=== PATIENT | female | born 1975 | race Caucasian/White ===

== ENCOUNTER → 2017-06-25 | Outpatient (CLI) | payer OTHER | LOC: HRSP 07:01 | PROVIDERS: ATTEND Family Medicine | DX: J45.909 Unspecified asthma, uncomplicated (principal) | CPT/HCPCS: 94060; 94726; 94729 ==

== ENCOUNTER 2017-07-16 10:45 | Emergency (ER) | payer OTHER ==
[~2017-07-16] VITALS: Ht 160 cm; Wt 50.0 kg
[2017-07-16 10:47] VITALS: BP 108/56; PULSE 80; RESP 16; TEMP 98.2; O2SAT 100
--- NOTE | 2017-07-16 16:44 | PD ---
Physical Exam Date Seen by Provider: Jul 16, 2017 Time Seen by Provider: 11:18 Narrative 42 year old female presents to the emergency department for psychiatric evaluation. Her PCP, Dr. Sheth, recommended she come in. She reports being depressed, but denies any suicidal ideation. She states she has an upcoming psychiatrist appointment. Data Data Last Documented VS Vital Signs Date Time Temp Pulse Resp B/P (MAP) Pulse Ox O2 Delivery O2 Flow Rate FiO2 07/16/17 10:47 98.2 80 16 108/56 (73) 100 MDM Supervised Visit with SONDRA: No Narrative Course 42 year old female presents to the emergency department voluntarily for psychiatric evaluation. Patient is initially seen in triage. She stated she did not want to wait to be taken to a bed and would follow up with her psychiatrist. She denies any suicidal thoughts. Patient is aware that she is leaving AMA. Diagnosis Primary Impression: Left against medical advice Patient Instructions: General Instructions Departure Forms: Tests/Procedures Scripts Unable to Obtain Active Prescriptions or Reported Meds Disposition: 07 AGAINST MEDICAL ADVICE Naz Reeves Jul 16, 2017 16:44
== END 2017-07-16 11:19 | disposition left against medical advice (07) ==
LOC: NED 10:45
DX: Z00.8 Encounter for other general examination (principal); Z53.21 Procedure and treatment not carried out due to patient leaving prior to being seen by health care provider
CPT/HCPCS: 99281